=== PATIENT | male | born 1990 | race Caucasian/White ===

== ENCOUNTER 2017-06-08 19:55 | Emergency (ER) | payer OTHER ==
[~2017-06-08] VITALS: Ht 185.4 cm; Wt 100.3 kg
[~2017-06-08 19:55] MED LIST: ABAT250V; AMLO10 PO; CLON.2 PO; DOXA4; ENAL10 PO; LABE100
[2017-06-08] MEDS ORDERED: IBUP800 PO (22:19)
[2017-06-08] MEDS ORDERED: PENVK500 PO (22:19)
[2017-06-08] MEDS ORDERED: DOXA1 (22:34)
[2017-07-19] MEDS ORDERED: Labetalol HCl300 MG PO (19:01)
[2017-07-19] MEDS ORDERED: AMOX250 PO (19:03)
[2017-07-21] MEDS ORDERED: AZIT500 PO (10:54)
[2017-11-07] MEDS ORDERED: DOXA2 PO (18:23)
[2017-11-07] MEDS ORDERED: OLAN5 PO (18:25)
[2017-11-07] MEDS ORDERED: ESCI5 PO (18:26)
[2017-11-08] MEDS ORDERED: LISI20 PO (16:40)
[2018-01-24] MEDS ORDERED: CLON.3 PO (03:25)
[2018-01-24] MEDS ORDERED: TRAZ50 PO (03:28)
[2018-01-29] MEDS ORDERED: ACET500 PO (04:22)
[2018-01-29] MEDS ORDERED: PANT20 PO (16:29)
== END 2017-06-09 00:20 | disposition home or self-care (01) ==
LOC: ER 19:55
DX: K02.9 Dental caries, unspecified (principal); I10 Essential (primary) hypertension; Z79.899 Other long term (current) drug therapy; Z87.891 Personal history of nicotine dependence
CPT/HCPCS: 99282

== ENCOUNTER 2017-07-10 19:26 | Inpatient (IN) | payer OTHER ==
[~2017-07-10] VITALS: Ht 185.4 cm; Wt 93.3 kg
[~2017-07-10 19:26] MED LIST changes: +AMLO10; -AMLO10 PO; +DOXA1; +IBUP800 PO; +PENVK500 PO
[2017-07-10] MEDS ORDERED: DOXA1 PO (19:48)
[2017-07-10 20:12] LABS: BASOPHILS ABSOLUTE AUTO 0.05 K/mm3 (0.00-0.23); BASOPHILS PERCENT AUTO 1 % (0-2); EOSINOPHILS ABSOLUTE AUTO 0.25 K/mm3 (0.00-0.68); EOSINOPHILS PERCENT AUTO 3 % (0-6); Hematocrit 50.9 % (37.0-53.0); Hemoglobin 17.4 g/dL (13.5-17.5); IMMATURE GRAN ABSOLUTE AUTO 0.02 K/mm3 (0.00-0.10); IMMATURE GRAN PERCENT AUTO 0 % (0-1); LYMPHOCYTES ABSOLUTE AUTO 2.56 K/mm3 (0.84-5.20); LYMPHOCYTES PERCENT AUTO 33 % (21-46); MONOCYTES ABSOLUTE AUTO 0.71 K/mm3 (0.16-1.47); MONOCYTES PERCENT AUTO 9 % (4-13); Mean Corpuscular HGB Conc 34.2 g/dL (31.5-36.5); Mean Corpuscular Volume 82 fL (80-100); NEUTROPHILS PERCENT AUTO 54 % (41-73); Platelet Count 247 K/mm3 (150-400); RDW Coefficient Variation 12.8 % (11.7-14.2); RDW Standard Deviation 37.6 fL (35.1-46.3); Red Blood Cell Count 6.21 M/mm3 (4.30-5.90); White Blood Cell Count 7.79 K/mm3 (4.00-11.30)
[2017-07-10 20:35] LABS: U Amphetamine Screen Not Detected; U Barbituate Screen Not Detected; U Benzodiazapine Screen Not Detected; U Buprenorphine Screen Not Detected; U Cannabinoids Screen Not Detected; U Cocaine Screen Not Detected; U Methadone Screen Not Detected; U Methamphetamine Screen Not Detected; U Opiates Screen Not Detected; U Oxycodone Screen Not Detected; U Phencyclidine Screen Not Detected; U Propoxyphene Screen Not Detected
[2017-07-10 20:36] LABS: Alanine Aminotransfer (ALT/SGP 72 U/L (12-78); Albumin, Blood 4.2 g/dL (3.4-5.0); Albumin/Globulin Ratio 1.1 (0.8-1.8); Alk Phos 117 U/L (50-136); Anion Gap 8 mmol/L (6-16); Aspartate Aminotrans (AST/SGOT 39 U/L (12-37); Bilirubin, Total 0.7 mg/dL (0.1-1.0); Blood Urea Nitrogen 16 mg/dL (8-24); Bun/Creatinine Ratio 15.1 (12.0-20.0); CO2, Blood 27 mmol/L (21-32); Calcium, Blood 8.7 mg/dL (8.5-10.1); Chloride, Blood 107 mmol/L (98-108); Creatinine, Blood 1.06 mg/dL (0.60-1.20); Ethanol (Alcohol), Blood, Med <3 mg/dL; Globulin, Blood 3.9 g/dL (2.2-4.0); Glomerular Filtration Rate >60 (60-); Glucose, Blood 90 mg/dL (70-99); Sodium, Blood 142 mmol/L (136-145); Total Protein, Blood 8.1 g/dL (6.4-8.2); Troponin I <0.015 ng/mL (0.000-0.040)
[2017-07-11] MEDS ORDERED: AMIL5 PO (01:47)
[2017-07-11 09:14] LABS: BASOPHILS ABSOLUTE AUTO 0.03 K/mm3 (0.00-0.23); BASOPHILS PERCENT AUTO 0 % (0-2); EOSINOPHILS ABSOLUTE AUTO 0.09 K/mm3 (0.00-0.68); EOSINOPHILS PERCENT AUTO 1 % (0-6); Hematocrit 49.8 % (37.0-53.0); Hemoglobin 16.9 g/dL (13.5-17.5); IMMATURE GRAN ABSOLUTE AUTO 0.02 K/mm3 (0.00-0.10); IMMATURE GRAN PERCENT AUTO 0 % (0-1); LYMPHOCYTES ABSOLUTE AUTO 2.34 K/mm3 (0.84-5.20); LYMPHOCYTES PERCENT AUTO 28 % (21-46); MONOCYTES ABSOLUTE AUTO 0.83 K/mm3 (0.16-1.47); MONOCYTES PERCENT AUTO 10 % (4-13); Mean Corpuscular HGB 27.7 pg (26.0-34.0); Mean Corpuscular HGB Conc 33.9 g/dL (31.5-36.5); Mean Corpuscular Volume 82 fL (80-100); Mean Platelet Volume 9.9 fL (9.1-12.4); NEUTROPHILS ABSOLUTE AUTO 4.93 K/mm3 (1.96-9.15); NEUTROPHILS PERCENT AUTO 60 % (41-73); Platelet Count 227 K/mm3 (150-400); RDW Standard Deviation 37.7 fL (35.1-46.3); Red Blood Cell Count 6.11 M/mm3 (4.30-5.90); White Blood Cell Count 8.24 K/mm3 (4.00-11.30)
[2017-07-11 14:20] LABS: Alanine Aminotransfer (ALT/SGP 64 U/L (12-78); Albumin, Blood 3.7 g/dL (3.4-5.0); Alk Phos 98 U/L (50-136); Anion Gap 12 mmol/L (6-16); Aspartate Aminotrans (AST/SGOT 31 U/L (12-37); Blood Urea Nitrogen 14 mg/dL (8-24); Bun/Creatinine Ratio 14.5 (12.0-20.0); CO2, Blood 22 mmol/L (21-32); Calcium, Blood 8.9 mg/dL (8.5-10.1); Chloride, Blood 110 mmol/L (98-108); Creatinine, Blood 0.97 mg/dL (0.60-1.20); Globulin, Blood 3.7 g/dL (2.2-4.0); Glomerular Filtration Rate >60 (60-); Glucose, Blood 108 mg/dL (70-99); Potassium, Blood 2.9 mmol/L (3.5-5.5); Sodium, Blood 144 mmol/L (136-145); Total Protein, Blood 7.4 g/dL (6.4-8.2)
[2017-07-11 14:42] LABS: Source, Urine Clean Catch
[2017-07-11 15:03] LABS: Bilirubin, Urine Neg (Neg); Blood, Urine Neg (Neg); Glucose Qualitative, Urine Neg (Neg); Ketones, Urine Neg (Neg); Leukocyte Esterase, Urine Neg (Neg); Nitrite, Urine Neg (Neg); Protein, Urine Neg (Neg); Specific Gravity, Urine 1.015 (1.003-1.022); Urobilinogen, Urine 2+ (Normal)
[2017-07-11 15:10] LABS: Appearance, Urine Clear (Clear); Color, Urine Yellow (P-Yellow)
[2017-07-11 16:19] LABS: Anion Gap 10 mmol/L (6-16); Blood Urea Nitrogen 14 mg/dL (8-24); Bun/Creatinine Ratio 15.1 (12.0-20.0); CO2, Blood 25 mmol/L (21-32); Calcium, Blood 9.2 mg/dL (8.5-10.1); Chloride, Blood 106 mmol/L (98-108); Creatinine, Blood 0.93 mg/dL (0.60-1.20); Glomerular Filtration Rate >60 (60-); Glucose, Blood 115 mg/dL (70-99); Potassium, Blood 3.2 mmol/L (3.5-5.5); Sodium, Blood 141 mmol/L (136-145)
[2017-07-12 09:48] LABS: Albumin, Blood 3.7 g/dL (3.4-5.0); Anion Gap 9 mmol/L (6-16); Blood Urea Nitrogen 10 mg/dL (8-24); Bun/Creatinine Ratio 12.4 (12.0-20.0); CO2, Blood 24 mmol/L (21-32); Calcium, Blood 9.1 mg/dL (8.5-10.1); Chloride, Blood 107 mmol/L (98-108); Creatinine, Blood 0.81 mg/dL (0.60-1.20); Glomerular Filtration Rate >60 (60-); Glucose, Blood 118 mg/dL (70-99); Phosphorus, Blood 2.5 mg/dL (2.5-4.9); Potassium, Blood 2.9 mmol/L (3.5-5.5); Sodium, Blood 140 mmol/L (136-145)
[2017-07-13 05:08] LABS: Albumin, Blood 3.3 g/dL (3.4-5.0); Anion Gap 7 mmol/L (6-16); Blood Urea Nitrogen 15 mg/dL (8-24); Bun/Creatinine Ratio 17.7 (12.0-20.0); CO2, Blood 26 mmol/L (21-32); Chloride, Blood 109 mmol/L (98-108); Creatinine, Blood 0.85 mg/dL (0.60-1.20); Glomerular Filtration Rate >60 (60-); Glucose, Blood 97 mg/dL (70-99); Phosphorus, Blood 3.9 mg/dL (2.5-4.9); Potassium, Blood 3.5 mmol/L (3.5-5.5); Sodium, Blood 142 mmol/L (136-145)
[2017-07-13] MEDS ORDERED: AMIL5 PO (12:40)
[2017-07-13] MEDS ORDERED: LABE100 PO (12:42)
[2017-07-13] MEDS ORDERED: Cardura2 MG PO (12:47)
[2017-07-19] MEDS ORDERED: Labetalol HCl300 MG PO (19:01)
[2017-07-19] MEDS ORDERED: AMOX250 PO (19:03)
[2017-07-21] MEDS ORDERED: AZIT500 PO (10:54)
== END 2017-07-13 13:13 | disposition home or self-care (01) | DRG 305 ==
LOC: ER 19:26 → ICUE 19:27 → ICUW 19:27 → ICUE 07-11 01:31 → MEDS 07-11 01:45 → ICUE 07-11 15:02 → MEDS 07-11 18:01 → ENPENDDIS 07-13 12:00 → MEDS 07-13 13:13
PROVIDERS: Emergency Medicine; Family Medicine; Internal Medicine
DX: I16.1 Hypertensive emergency (principal); E87.6 Hypokalemia; N18.2 Chronic kidney disease, stage 2 (mild); I12.9 Hypertensive chronic kidney disease with stage 1 through stage 4 chronic kidney disease, or unspecified chronic kidney disease; Z79.899 Other long term (current) drug therapy
CPT/HCPCS: 36415; 71045; 80048; 80053; 80069; 80400; 81003; 82088; 82533; 84156; 84244; 84484; 85025; 93005; 93010; 93306; 93975; 96365; 96366; 96375; 96376; 99285; G0480; J0360; J0834; J2001; J3480; J7030

== ENCOUNTER 2018-04-10 11:25 | Inpatient (IN) | payer OTHER ==
[~2018-04-10] VITALS: Ht 185.4 cm; Wt 109.3 kg
[~2018-04-10 11:25] MED LIST changes: +ACET500 PO; +AMIL5 PO; -AMLO10; +AMLO10 PO; +AMOX250 PO; +AZIT500 PO; +Cardura2 MG PO; +DOXA1 PO; +DOXA2 PO; +ESCI5 PO; +LABE100 PO; +LISI20 PO; +Labetalol HCl300 MG PO; +OLAN5 PO; +PANT20 PO; +TRAZ50 PO
[2018-04-10 12:06] LABS: BASOPHILS ABSOLUTE AUTO 0.06 K/mm3 (0.00-0.23); BASOPHILS PERCENT AUTO 1 % (0-2); EOSINOPHILS ABSOLUTE AUTO 0.36 K/mm3 (0.00-0.68); EOSINOPHILS PERCENT AUTO 4 % (0-6); Hematocrit 53.9 % (37.0-53.0); Hemoglobin 17.9 g/dL (13.5-17.5); IMMATURE GRAN ABSOLUTE AUTO 0.03 K/mm3 (0.00-0.10); IMMATURE GRAN PERCENT AUTO 0 % (0-1); LYMPHOCYTES ABSOLUTE AUTO 2.67 K/mm3 (0.84-5.20); LYMPHOCYTES PERCENT AUTO 33 % (21-46); MONOCYTES ABSOLUTE AUTO 0.51 K/mm3 (0.16-1.47); MONOCYTES PERCENT AUTO 6 % (4-13); Mean Corpuscular HGB 28.6 pg (26.0-34.0); Mean Corpuscular HGB Conc 33.2 g/dL (31.5-36.5); Mean Corpuscular Volume 86 fL (80-100); Mean Platelet Volume 10.3 fL (9.1-12.4); NEUTROPHILS ABSOLUTE AUTO 4.55 K/mm3 (1.96-9.15); NEUTROPHILS PERCENT AUTO 56 % (41-73); Platelet Count 329 K/mm3 (150-400); RDW Coefficient Variation 13.2 % (11.7-14.2); RDW Standard Deviation 40.5 fL (35.1-46.3); Red Blood Cell Count 6.26 M/mm3 (4.30-5.90); White Blood Cell Count 8.18 K/mm3 (4.00-11.30)
[2018-04-10 12:28] LABS: Alanine Aminotransfer (ALT/SGP 86 U/L (12-78); Albumin, Blood 4.4 g/dL (3.4-5.0); Albumin/Globulin Ratio 1.1 (0.8-1.8); Alk Phos 121 U/L (50-136); Anion Gap 7 mmol/L (6-16); Aspartate Aminotrans (AST/SGOT 40 U/L (12-37); Bilirubin, Total 0.7 mg/dL (0.1-1.0); Blood Urea Nitrogen 15 mg/dL (8-24); CO2, Blood 27 mmol/L (21-32); Calcium, Blood 9.1 mg/dL (8.5-10.1); Chloride, Blood 106 mmol/L (98-108); Creatinine, Blood 0.88 mg/dL (0.60-1.20); Glomerular Filtration Rate >60 (60-); Glucose, Blood 106 mg/dL (70-99); Potassium, Blood 3.5 mmol/L (3.5-5.5); Sodium, Blood 140 mmol/L (136-145); Total Protein, Blood 8.4 g/dL (6.4-8.2); Troponin I <0.015 ng/mL (0.000-0.040)
[2018-04-10] MEDS ORDERED: Labetalol HCl300 MG PO (12:50)
[2018-04-10] MEDS ORDERED: FLUO10 PO (12:51)
[2018-04-10] MEDS ORDERED: QUET300 PO (12:51)
--- NOTE | 2018-04-10 17:08 | NUR ---
Received report and assumed care of patient. He is A&O with pleasant affect. Only complaint is some continued burning chest pain he states, "09/15." Nipride is running at 0.75 mcg/kg/min with rate of 24.3. Will continue to monitor and titrate Nipride to ordered parameters.
--- NOTE | 2018-04-10 18:40 | NUR ---
Patient has not had any significant changes, his b/p is continuing to come down. Currently systolic b/p 160's. Will continue Nipride at 0.75 mcg/kg/min. Encouraged patient to urinate. Gave him information for local and national [employer] eye glassess resource.
[2018-04-10 21:24] LABS: U Amphetamine Screen Not Detected; U Barbituate Screen Not Detected; U Benzodiazapine Screen Not Detected; U Buprenorphine Screen Not Detected; U Cannabinoids Screen DETECTED; U Cocaine Screen Not Detected; U Methadone Screen Not Detected; U Methamphetamine Screen Not Detected; U Opiates Screen Not Detected; U Oxycodone Screen Not Detected; U Phencyclidine Screen Not Detected; U Propoxyphene Screen Not Detected
--- NOTE | 2018-04-10 22:54 | NUR ---
ASSUMING CARE RECEVIED PT REPORT FROM KEVIN DAVIDSON. PT IS ADMITTED DUE TO A HYPERTENSIVE CRISIS. PT IS CURRENTLY ON A NIPRIDE GTT. NIPRIDE GTT AT THE TIME OF SHIFT REPORT IS RUNNING AT 0.75MCG/KG/MIN. PT SBP IS IN THE 160-170 RANGE AT THE TIME OF SHIFT REPORT. PT IS ALERT AND ORIENTED AND IS ABLE TO MAKE NEEDS KNOWN. PT IS REPORTING A HEADACHE AND N/V. PT PROVIDED ZOFRAN AND TYLENOL SHORTLY AFTER CARE ASSUMED. PT REPORTED SOME RELEIF FROM MEDICATION ADMINISTRATION. URINE SAMPLE SENT UP TO LAB. NIPRIDE GTT TITRATED TO EFFECT. AFTER ADMINISTRATION OF 2100 MEDICATIONS PT SBP DECREASED. NIPRIDE GTT REDUCED TO 0.1MCG/KG/MIN AT THIS TIME. ASSUMING CARE OF PT AT THE TIME OF SHIFT REPORT. WILL CONTINUE TO MONITOR PT.
[2018-04-11 04:29] LABS: Anion Gap 8 mmol/L (6-16); Blood Urea Nitrogen 22 mg/dL (8-24); Bun/Creatinine Ratio 10.7 (12.0-20.0); CO2, Blood 26 mmol/L (21-32); Calcium, Blood 9.1 mg/dL (8.5-10.1); Chloride, Blood 105 mmol/L (98-108); Creatinine, Blood 2.06 mg/dL (0.60-1.20); Glomerular Filtration Rate 41 (60-); Glucose, Blood 105 mg/dL (70-99); Phosphorus, Blood 4.5 mg/dL (2.5-4.9); Sodium, Blood 139 mmol/L (136-145)
--- NOTE | 2018-04-11 05:23 | NUR ---
SHIFT SUMMARY NOTE PT HAS REMAIND ALERT AND ORIENTED THROUGH THE NIGHT WHILE AWAKE. PT HAS SLEPT THROUGH MUCH OF THE NIGHT AFTER APPROX 2300. PT HAS HAD NO FURTHER COMPLAINTS OF N/V OR HEADACHE. PT BP HAS DECREASED AND IS IN THE 110-120'S AT THIS TIME. NIPRIDE HAS BEEN ON STANDBY SINCE APPROX 0000. PT HAS OCCASIONALLY DESATURATED INTO THE HIGH 80'S WHILE ASLEEP. 2L O2 VIA NC APPLIED. PT HAS CONTINUALLY REMOVED NC. PT DOES NOT MAINTAIN IN THE 80'S AND WILL QUICKLY RETURN TO THE MID 90'S. PT IS SALINE LOCKED AT THIS TIME. WILL REPORT OFF TO [facility] DAY SHIFT NURSE.
--- NOTE | 2018-04-11 10:30 | NUR ---
RECEIVED REPORT AND ASSUMED CARE OF PATIENT. HE IS VERY LETHARGIC THIS MORNING, BUT DOES REPORT THAT HIS CHEST PAIN HAS RESOLVED AND HE IS NOT EXPERIENCING ANY HEADACHE SYMPTOMS AT THIS TIME. BLOOD PRESSURES HAVE CORRECTED AND ARE RUNNING 110-120'S SYSTOLICALLY. DR. LOMBARDI IN TO SEE PATIENT STATES SHE WOULD LIKE THE CLONIDINE AND AMILORIDE HELD UNTIL THIS AFTERNOON. SHE ORDERED K+ REPLACEMENT AND A IV DRIP OF 1/2 NS WITH 20 MEQ K+ TO RUN FOR 24 HOURS. ORDERED FOLLOW UP LABS FOR THIS AFTERNOON AND WOULD LIKE A CALL WITH RESULTS. PT IS CONTINUING TO REST COMFORTABLY, WILL MONITOR BP AND REPORT CHANGES PER DR. DIOR.
--- NOTE | 2018-04-11 10:30 | NUR ---
GAVE REPORT TO KEVIN SALINAS TO ASSUME CARE OF PATIENT. DR. LOMBARDI TO BE CALLED BEFORE 1400 MEDS ARE GIVEN.
--- NOTE | 2018-04-11 10:46 | NUR ---
DR. MARIA C LOMBARDI CALLED WITH UPDATE ON PLAN OF CARE. SHE STATES SHE HAS MADE SOME MED ADJUSTMENTS AND WOULD LIKE PT TO REMAIN ICU STATUS THROUGH REST OF DAY. SHE WOULD LIKE TO BE CALLED PRIOR TO 1400 BP MED ADMINISTRATION. SHE WOULD LIKE PT'S SYSTOLIC BP TO REMAIN 140-150 RANGE. NO ADDITIONAL ORDERS RECEIVED AT THIS TIME.
--- NOTE | 2018-04-11 10:55 | NUR ---
ASSUMED CARE OF PATIENT; NO ACUTE CHANGES.
--- NOTE | 2018-04-11 14:15 | NUR ---
T/C TO DR. LOMBARDI RE: RECENT BP READINGS; ORDER GIVEN TO HOLD THIS AFTERNOONS MEDS (CATAPRESS AND TRANDATE). WILL DETERMINE WHAT TO DO WITH EVENING MEDS WHEN 1600 LABS CALLED.
[2018-04-11 16:40] LABS: Albumin, Blood 3.9 g/dL (3.4-5.0); Anion Gap 6 mmol/L (6-16); Blood Urea Nitrogen 28 mg/dL (8-24); Bun/Creatinine Ratio 10.3 (12.0-20.0); CO2, Blood 27 mmol/L (21-32); Calcium, Blood 8.8 mg/dL (8.5-10.1); Chloride, Blood 105 mmol/L (98-108); Creatinine, Blood 2.72 mg/dL (0.60-1.20); Glomerular Filtration Rate 29 (60-); Glucose, Blood 85 mg/dL (70-99); Phosphorus, Blood 4.5 mg/dL (2.5-4.9); Potassium, Blood 3.4 mmol/L (3.5-5.5); Sodium, Blood 138 mmol/L (136-145)
--- NOTE | 2018-04-11 16:50 | NUR ---
T/C TO DR. LOMBARDI RE: 1600 LAB RESULTS; SEE MULTIPLE BP MED. CHANGES.
--- NOTE | 2018-04-11 18:43 | NUR ---
SUMMARY: PATIENT SLEPT MOST OF DAY; AWAKE THE PAST 1-2 HOURS; SBP 130'S TO 140'S WHEN AWAKE; SEE VS CHART. MULTIPLE BP MED. ADJUSTMENTS FOR TONIGHT AND DR. LOMBARDI TO MAKE CHANGES IN AM RE: AM BP MEDS. IDEALLY WANTS SBP 140-160. PATIENT ATE WELL WITH DINNER; REFUSES LOVENOX INJECTION AND WILL NOT WEAR SCD'S; STATES HE MOVES AROUND ENOUGH. OVERALL STATUS IMPROVED.
--- NOTE | 2018-04-11 19:15 | NUR ---
[place] of Care: Patient sleeping, easily roused via verbal stimuli, oriented x4. Denies pain, discomfort, SOB, or dyspnea. VSS, systolic BP 120's-130's. 1/2NS with 20meq KCl infusing at 125ml without difficulty. Will monitor BP and give scheduled 2100hr medications per Dr. Beasley's nurse notify orders/parameters. Voiding using urinal without difficulty. Peripheral IV's x2 patent and intact. Call light in reach, makes needs known, adjust own position in bed. Will continue to monitor for pain, comfort, safety.
[2018-04-12 03:52] LABS: Albumin, Blood 3.7 g/dL (3.4-5.0); Anion Gap 8 mmol/L (6-16); Blood Urea Nitrogen 26 mg/dL (8-24); Bun/Creatinine Ratio 16.2 (12.0-20.0); CO2, Blood 24 mmol/L (21-32); Calcium, Blood 8.6 mg/dL (8.5-10.1); Chloride, Blood 108 mmol/L (98-108); Glomerular Filtration Rate 54 (60-); Glucose, Blood 91 mg/dL (70-99); Phosphorus, Blood 3.2 mg/dL (2.5-4.9); Potassium, Blood 3.6 mmol/L (3.5-5.5); Sodium, Blood 140 mmol/L (136-145)
--- NOTE | 2018-04-12 05:44 | NUR ---
Shift Summary: Patient slept well throughout shift, easily roused via verbal stimuli, oriented x4. Denies pain, discomfort, SOB, or dyspnea throughout shift. VSS, systolic BP 120's-140's. Peripheral IV's remain patent and intact, infusing fluids without difficulty. Voiding using urinal in bed, dark yellow clear urine. Status change to PCU this shift per Dr. Chung. Pleasant and cooperative with staff, makes needs known. Will continue to monitor until report to day shift RN.
--- NOTE | 2018-04-12 07:30 | NUR ---
ASSUMED CARE OF PATIENT; SEE ASSESSMENT CHARTING FOR DETAILED ASSESSMENT. LUNGS CLEAR; NO ACUTE DISTRESS. MORE ALERT THIS AM; NO C/O PAIN. MAEW AND REPOSITIONS SELF IN BED. SBP IMPROVED; STAYING 130'S TO 170; AWAITING DR. LOMBARDI TO ARRIVE TO DETERMINE BP MEDS. TO BE GIVEN THIS AM. APPETITE BETTER BUT REMAINS QUIET AND NONOBTRUSIVE.
--- NOTE | 2018-04-12 09:15 | NUR ---
T/C TO DR. LOMBARDI TO CHECK ON AM MEDS; MESSAGE LEFT FOR HER WITH UPDATE.
--- NOTE | 2018-04-12 09:20 | NUR ---
DR. LOMBARDI RETURNED CALL; SEE MED ORDERS. SHE WILL ROUND THIS AFTERNOON AND DETERMINE ONGOING TX. FOR BP MANAGEMENT.
--- NOTE | 2018-04-12 12:30 | NUR ---
TOLERATING MEALS WITHOUT GI UPSET. VOIDING IN URINAL MODERATE TO LARGE AMOUNTS; URINE REMAINS LINDA IN COLOR.
--- NOTE | 2018-04-12 18:00 | NUR ---
SUMMARY; NO ACUTE C/O. SBP ADEQUATE; BP MEDS. ADJUSTED BY DR. LOMBARDI; VSS. PATIENT SLEEPIER THIS AFTERNOON AND APPETITE REDUCED THIS EVENING. SLEEPING WHEN NOT DISTURBED. TALKED ON PHONE TO S.O. TODAY. VOIDING IN URINAL; URINE REMAINS LINDA. REFUSES SCD'S AND LOVENOX. NOT WANTING TO GET OOB BUT ABLE TO REPOSITION SELF IN BED WITHOUT DIFFICULTY.
--- NOTE | 2018-04-12 19:30 | NUR ---
[place] of Care: Patient sleeping, easily roused via verbal stimuli, oriented x4. Denies pain, discomfort, SOB, dyspnea, or SOB. VSS, systolic BP 150's-160's, O2-95% on RA. Voiding using urinal in bed without difficulty. Peripheral IV's x2 patent and intact. Flat affect, but calm and cooperative with staff. Call light in reach, makes needs known. Will continue to monitor for pain, comfort, safety.
[2018-04-13 04:38] LABS: Albumin, Blood 3.8 g/dL (3.4-5.0); Anion Gap 8 mmol/L (6-16); Blood Urea Nitrogen 19 mg/dL (8-24); Bun/Creatinine Ratio 18.4 (12.0-20.0); CO2, Blood 23 mmol/L (21-32); Chloride, Blood 109 mmol/L (98-108); Creatinine, Blood 1.03 mg/dL (0.60-1.20); Glomerular Filtration Rate >60 (60-); Glucose, Blood 95 mg/dL (70-99); Potassium, Blood 3.9 mmol/L (3.5-5.5); Sodium, Blood 140 mmol/L (136-145)
--- NOTE | 2018-04-13 06:10 | NUR ---
Shift Summary: Slept well throughout shift, only rouses when staff in room for care. Continues to deny pain, discomfort, SOB, or dyspnea. VSS, systolic BP 140's-160's. Voids using urinal in bed without difficulty. Will continue to monitor until report to day shift RN.
--- NOTE | 2018-04-13 12:03 | NUR ---
Discharge: Assumed care of pt at approx 0700 this AM. VSS - hypertensive this AM - medicated per orders. In no apparent sign of distress. Pt is independent in the room and asks for assistance appropriately. Denies any pain. Denies any complaints at all. See shift assessment for detailed assessment. Pt discharged today with friend at approx 1200. VSS. In no apparent sign of distress. Pt provided with discharge education and discharged with belongings in hand. Denied any furhter questions, complaints or requests at time of discharge.
== END 2018-04-13 12:00 | disposition home or self-care (01) | DRG 305 ==
LOC: ER 11:25 → ICUE 11:26 → ICUW 11:26 → ICUE 16:17
PROVIDERS: Emergency Medicine; Internal Medicine; ADMIT Internal Medicine
DX: I16.0 Hypertensive urgency (principal); N17.9 Acute kidney failure, unspecified; I71.2 Thoracic aortic aneurysm, without rupture; F25.9 Schizoaffective disorder, unspecified; I15.1 Hypertension secondary to other renal disorders; E87.6 Hypokalemia; Z87.891 Personal history of nicotine dependence; Z79.899 Other long term (current) drug therapy; Z88.5 Allergy status to narcotic agent; Z91.018 Allergy to other foods; Z28.20 Immunization not carried out because of patient decision for unspecified reason
CPT/HCPCS: 36415; 71275; 74175; 80048; 80053; 80069; 84484; 85025; 93005; 93010; 96374; 96375; 99285-25; C9113; G0378; J0360; J2405; J3480; J7060; Q9967

== ENCOUNTER 2018-10-21 15:23 | Emergency (ER) | payer OTHER ==
[~2018-10-21] VITALS: Ht 185.4 cm; Wt 108.9 kg
[~2018-10-21 15:23] MED LIST changes: +FLUO10 PO; +LABE200 PO; +QUET300 PO
[2018-10-21 15:53] LABS: BASOPHILS ABSOLUTE AUTO 0.02 K/mm3 (0.00-0.23); BASOPHILS PERCENT AUTO 0 % (0-2); EOSINOPHILS ABSOLUTE AUTO 0.06 K/mm3 (0.00-0.68); EOSINOPHILS PERCENT AUTO 1 % (0-6); Hemoglobin 19.1 g/dL (13.5-17.5); IMMATURE GRAN ABSOLUTE AUTO 0.03 K/mm3 (0.00-0.10); IMMATURE GRAN PERCENT AUTO 0 % (0-1); LYMPHOCYTES ABSOLUTE AUTO 1.17 K/mm3 (0.84-5.20); LYMPHOCYTES PERCENT AUTO 12 % (21-46); MONOCYTES ABSOLUTE AUTO 0.46 K/mm3 (0.16-1.47); MONOCYTES PERCENT AUTO 5 % (4-13); Mean Corpuscular HGB 27.7 pg (26.0-34.0); Mean Corpuscular HGB Conc 33.2 g/dL (31.5-36.5); Mean Corpuscular Volume 84 fL (80-100); Mean Platelet Volume 10.2 fL (9.1-12.4); NEUTROPHILS ABSOLUTE AUTO 8.34 K/mm3 (1.96-9.15); NEUTROPHILS PERCENT AUTO 83 % (41-73); Platelet Count 367 K/mm3 (150-400); RDW Coefficient Variation 13.3 % (11.7-14.2); RDW Standard Deviation 39.7 fL (35.1-46.3); Red Blood Cell Count 6.89 M/mm3 (4.30-5.90); White Blood Cell Count 10.08 K/mm3 (4.00-11.30)
[2018-10-21 16:00] LABS: Hematocrit 57.5 % (37.0-53.0)
[2018-10-21 16:19] LABS: Alanine Aminotransfer (ALT/SGP 73 U/L (12-78); Albumin, Blood 4.6 g/dL (3.4-5.0); Albumin/Globulin Ratio 1.1 (0.8-1.8); Alk Phos 127 U/L (50-136); Anion Gap 8 mmol/L (6-16); Aspartate Aminotrans (AST/SGOT 27 U/L (12-37); Blood Urea Nitrogen 17 mg/dL (8-24); Bun/Creatinine Ratio 13.4 (12.0-20.0); CO2, Blood 24 mmol/L (21-32); Calcium, Blood 9.6 mg/dL (8.5-10.1); Chloride, Blood 109 mmol/L (98-108); Creatinine, Blood 1.27 mg/dL (0.60-1.20); Globulin, Blood 4.3 g/dL (2.2-4.0); Glomerular Filtration Rate >60 (60-); Glucose, Blood 108 mg/dL (70-99); Potassium, Blood 3.3 mmol/L (3.5-5.5); Sodium, Blood 141 mmol/L (136-145); Total Protein, Blood 8.9 g/dL (6.4-8.2); Troponin I <0.015 ng/mL (0.000-0.040)
[2018-10-21] MEDS ORDERED: LATUDA20 MG PO (16:52)
[2018-10-21] MEDS ORDERED: NITR.8TP TOP (16:52)
== END 2018-10-21 19:25 | disposition home or self-care (01) ==
LOC: ER 15:23
PROVIDERS: Physician Assistant
DX: E86.0 Dehydration (principal); I10 Essential (primary) hypertension; R55 Syncope and collapse; Z87.891 Personal history of nicotine dependence; Z88.5 Allergy status to narcotic agent; Z91.018 Allergy to other foods; Z79.899 Other long term (current) drug therapy
CPT/HCPCS: 36415; 71046; 80053; 84484; 85025; 93005; 93010; 96360; 99284-25; J7120

== ENCOUNTER 2018-11-03 10:16 | Observation (INO) | payer OTHER ==
[~2018-11-03] VITALS: Ht 185.4 cm; Wt 108.9 kg
[~2018-11-03 10:16] MED LIST changes: +LATUDA20 MG PO; +NITR.8TP TOP
[2018-11-03 10:59] LABS: BASOPHILS ABSOLUTE AUTO 0.05 K/mm3 (0.00-0.23); BASOPHILS PERCENT AUTO 1 % (0-2); EOSINOPHILS ABSOLUTE AUTO 0.12 K/mm3 (0.00-0.68); EOSINOPHILS PERCENT AUTO 1 % (0-6); Hematocrit 54.9 % (37.0-53.0); Hemoglobin 18.4 g/dL (13.5-17.5); IMMATURE GRAN ABSOLUTE AUTO 0.02 K/mm3 (0.00-0.10); IMMATURE GRAN PERCENT AUTO 0 % (0-1); LYMPHOCYTES ABSOLUTE AUTO 2.56 K/mm3 (0.84-5.20); LYMPHOCYTES PERCENT AUTO 29 % (21-46); MONOCYTES ABSOLUTE AUTO 0.53 K/mm3 (0.16-1.47); MONOCYTES PERCENT AUTO 6 % (4-13); Mean Corpuscular HGB 27.7 pg (26.0-34.0); Mean Corpuscular HGB Conc 33.5 g/dL (31.5-36.5); Mean Corpuscular Volume 83 fL (80-100); Mean Platelet Volume 10.1 fL (9.1-12.4); NEUTROPHILS ABSOLUTE AUTO 5.56 K/mm3 (1.96-9.15); NEUTROPHILS PERCENT AUTO 63 % (41-73); Platelet Count 363 K/mm3 (150-400); RDW Coefficient Variation 12.5 % (11.7-14.2); RDW Standard Deviation 37.6 fL (35.1-46.3); Red Blood Cell Count 6.65 M/mm3 (4.30-5.90); White Blood Cell Count 8.84 K/mm3 (4.00-11.30)
[2018-11-03 11:17] LABS: Ethanol (Alcohol), Blood, Med <3 mg/dL; Salicylate <1.7 mg/dL (2.8-20.0)
[2018-11-03 11:18] LABS: Alanine Aminotransfer (ALT/SGP 71 U/L (12-78); Albumin, Blood 4.6 g/dL (3.4-5.0); Albumin/Globulin Ratio 1.2 (0.8-1.8); Alk Phos 133 U/L (50-136); Anion Gap 8 mmol/L (6-16); Aspartate Aminotrans (AST/SGOT 30 U/L (12-37); Bilirubin, Total 0.5 mg/dL (0.1-1.0); Blood Urea Nitrogen 15 mg/dL (8-24); Bun/Creatinine Ratio 14.6 (12.0-20.0); CO2, Blood 23 mmol/L (21-32); Calcium, Blood 9.4 mg/dL (8.5-10.1); Chloride, Blood 107 mmol/L (98-108); Creatinine, Blood 1.03 mg/dL (0.60-1.20); Globulin, Blood 3.9 g/dL (2.2-4.0); Glomerular Filtration Rate >60 (60-); Glucose, Blood 108 mg/dL (70-99); Sodium, Blood 138 mmol/L (136-145); Total Protein, Blood 8.5 g/dL (6.4-8.2)
[2018-11-03 11:19] LABS: Acetaminophen, Random <2.0 ug/mL (10.0-30.0)
== END 2018-11-03 14:01 | disposition home or self-care (01) ==
LOC: ER 10:16 → EOR 10:17
PROVIDERS: Emergency Medicine; ADMIT Emergency Medicine
DX: F32.9 Major depressive disorder, single episode, unspecified (principal); I16.0 Hypertensive urgency; I10 Essential (primary) hypertension; Z79.899 Other long term (current) drug therapy; Z88.5 Allergy status to narcotic agent
CPT/HCPCS: 36415; 80053; 85025; 93005; 93010; 96374; 96376; 99285-25; G0378; G0480; J0360; Q3014

== ENCOUNTER 2019-01-27 10:20 | Inpatient (IN) | payer OTHER ==
[~2019-01-27] VITALS: Ht 185.4 cm; Wt 99.3 kg
[2019-01-27 11:04] LABS: BASOPHILS ABSOLUTE AUTO 0.03 K/mm3 (0.00-0.23); BASOPHILS PERCENT AUTO 0 % (0-2); EOSINOPHILS ABSOLUTE AUTO 0.12 K/mm3 (0.00-0.68); EOSINOPHILS PERCENT AUTO 1 % (0-6); Hemoglobin 17.4 g/dL (13.5-17.5); IMMATURE GRAN ABSOLUTE AUTO 0.03 K/mm3 (0.00-0.10); IMMATURE GRAN PERCENT AUTO 0 % (0-1); LYMPHOCYTES ABSOLUTE AUTO 2.34 K/mm3 (0.84-5.20); LYMPHOCYTES PERCENT AUTO 23 % (21-46); MONOCYTES PERCENT AUTO 5 % (4-13); Mean Corpuscular HGB 27.9 pg (26.0-34.0); Mean Corpuscular HGB Conc 33.5 g/dL (31.5-36.5); Mean Corpuscular Volume 83 fL (80-100); Mean Platelet Volume 10.1 fL (9.1-12.4); NEUTROPHILS PERCENT AUTO 70 % (41-73); Platelet Count 353 K/mm3 (150-400); Red Blood Cell Count 6.24 M/mm3 (4.30-5.90); White Blood Cell Count 10.02 K/mm3 (4.00-11.30)
[2019-01-27 11:17] LABS: Alanine Aminotransfer (ALT/SGP 64 U/L (12-78); Alk Phos 144 U/L (50-136); Anion Gap 7 mmol/L (6-16); Aspartate Aminotrans (AST/SGOT 41 U/L (12-37); Bilirubin, Total 0.8 mg/dL (0.1-1.0); Blood Urea Nitrogen 15 mg/dL (8-24); Bun/Creatinine Ratio 15.5 (12.0-20.0); CO2, Blood 27 mmol/L (21-32); Calcium, Blood 9.1 mg/dL (8.5-10.1); Chloride, Blood 107 mmol/L (98-108); Creatinine, Blood 0.97 mg/dL (0.60-1.20); Glomerular Filtration Rate >60 (60-); Glucose, Blood 95 mg/dL (70-99); Potassium, Blood 3.3 mmol/L (3.5-5.5); Sodium, Blood 141 mmol/L (136-145); Troponin I <0.015 ng/mL (0.000-0.040)
--- NOTE | 2019-01-27 14:15 | NUR ---
PATIENT ARRIVED TO ROOM ICU 9 FROM ER AFTER RECEIVING REPORT FROM KEVIN THOMAS, PATIENT MOVED SELF FROM STRETCHER TO BED, BED SCALE MALFUNCTIONING, STANDING SCALE USED TO OBTAIN WEIGHT, PATIENT NEEDS SBA ONLY, NO IMPAIRMENTS NOTED AT THIS TIME, PATIENT DENIES PAIN, REPORTS NO CHEST PAIN/PRESSURE, AFEBRILE, ABLE TO ANSWER ALL QUESTIONS AND TO MAKE NEEDS KNOWN, LUNG SOUNDS CLEAR, ON RA SATING IN UPPER 90'S, PATIENT PLACED ON MONITOR, NSR NOTED, CALL LIGHT GIVEN AND EXPLAINED, PATIENT WAS ORIENTED TO ROOM AND NEW ENVIRONMENT, PATIENT VERBALIZED UNDERSTANDING, CALL LIGHT IN REACH, WILL CONTINUE TO MONITOR.
--- NOTE | 2019-01-27 14:45 | NUR ---
DR. LOMBARDI IN TO SEE PATIENT, NEW ORDERS RECEIVED, PATIENT STARTED ON CARDENE DRIP AT 5 MG/HR WITH RATE OF 50 ML/HR, WITH INSTRUCTIONS FROM DR. LOMBARDI TO STOP DRIP WHEN SBP'S ARE IN 170'S TWICE, PATIENT IS EATING LUNCH WITH GOOD APPETITE AT THIS TIME, CALL LIGHT IN REACH, WILL CONTINUE TO MONITOR.
--- NOTE | 2019-01-27 16:20 | NUR ---
PATIENT RESTING COMFORTABLY AT THIS TIME, WATCHING TV, CALL LIGHT IN REACH, WILL CONTINUE TO MONITOR.
--- NOTE | 2019-01-27 17:42 | NUR ---
SHIFT SUMMARY NOTE: NO ACUTE EVENTS, PATIENT IS AWAKE, ALERT AND ORIENTED, CONTINUES ON CARDENE DRIP AT 7.5 MG/HR AT THIS TIME, BLOOD PRESSURES VARY BETWEEN 170'S TO 190'S, DEPENDING ON PATIENT ACTIVITY, PATIENT IS INDEPENDENT IN ROOM AND STANDS UP TO URINATE, MAKES NEEDS KNOWN, FOR DETAILS SEE ADMISSION AND SHIFT ASSESSMENT DOCUMENTATION, AND NURSES NOTES, CALL LIGHT IN REACH, WILL CONTINUE TO MONITOR AND GIVE REPORT TO ONCOMING GULLET SLITTER.
--- NOTE | 2019-01-27 19:27 | NUR ---
ASSUMED CARE BEDSIDE REPORT RECIEVED. PT IS SITTING UP IN BED, AWAKE, ALERT, AND ORIENTED. PT IS PLEASANT. PT DENIES PAIN OR DISCOMFORT. VITAL SIGNS STABLE, PT ON ROOM AIR. SBP 170'S AT THIS TIME. NICARDIPINE GTT INFUSING AT 7.5 MG/HR. PT USES URINAL AT BEDSIDE TO VOID. WILL CONTINUE TO MONITOR.
[2019-01-28 04:19] LABS: Albumin, Blood 3.8 g/dL (3.4-5.0); Anion Gap 7 mmol/L (6-16); Blood Urea Nitrogen 13 mg/dL (8-24); Bun/Creatinine Ratio 13.1 (12.0-20.0); CO2, Blood 28 mmol/L (21-32); Chloride, Blood 104 mmol/L (98-108); Creatinine, Blood 0.99 mg/dL (0.60-1.20); Glomerular Filtration Rate >60 (60-); Glucose, Blood 89 mg/dL (70-99); Phosphorus, Blood 3.7 mg/dL (2.5-4.9); Potassium, Blood 3.1 mmol/L (3.5-5.5); Sodium, Blood 139 mmol/L (136-145)
--- NOTE | 2019-01-28 06:01 | NUR ---
SHIFT SUMMARY NO ACUTE CHANGES THIS SHIFT. PT HAS REMAINED ALERT, ORIENTED, AND PLEASANT. PT SLEEPING THROUGHOUT THE MORNING WELL. NICARDIPINE GTT TURNED OFF AROUND 0000 WITH SBP REMAINING STABLE BELOW 170. VSS. PT USING URINAL TO VOID INDEPENDENTLY. PT REPOSITIONING SELF IN BED INDEPENDENTLY. WILL CONTINUE TO MONITOR AND REPORT OFF TO ONCOMING RN.
--- NOTE | 2019-01-28 07:10 | NUR ---
ASSUMED CARE: RECEIVED REPORT FROM NOC RN. PT APPEARS TO BE SLEEPING UPON ENTERING THE ROOM EVEN CHEST RISE AND FALL NOTED. NO ACUTE DISTRESS NOTED. VSS AT THIS TIME. NO IVF NOTED, SL LOCK. WILL CONTINUE TO MONITOR AND ASSESS FURTHER.
--- NOTE | 2019-01-28 08:20 | NUR ---
DECREASED LOC: MED STUDENT IN TO ASSESS PT THIS MORNING, UPDATED ON NICARDIPING BEING TURNED OFF AND NO LONGER NEEDING ICU STATUS. PT GIVEN BREAKFAST REPORT OF PT BEING AWAKE AND TALKING NO PROBLEM. THIS RN WENT IN TO ASSESS PT AND GIVE MORNING MEDICATIONS. VSS UPON ENTERING THE ROOM BP IS NOTED TO BE 133/91 AND HR 68 @ 0752. WHILE SCANNING MORNING MEDICATIONS PT REFUSES TO HAVE LOVENOX AND DR HUTCHINS WALKS IN. DR HUTCHINS STARTS TO TALK TO PT BUT PT IS NOTED TO BE NODDING OFF. PT STOPS RESPONDING TO DR HUTCHINS OR THIS RN AND WHEN PHYSICALY SHOOK AWAKE PT IS ONLY ABLE TO OPEN EYES AND APPEARS TO FALL RIGHT BACK TO SLEEP. BP RETAKEN AND NOTED TO BE 98/61 AND HR IN THE LOW 40'S. PT STATES HE DOESN'T FEEL WELL AND IS HOT HE IS NOTED TO BE VERY PALE IN COLOR. A SHORT TIME LATER STATES HE IS COLD. CALLED SENIOR CONTROL SYSTEMS ENGINEER THOM BARRAZA TO BE ON THE WEST SIDE OF THE UNIT FOR BACK UP INCASE PT CODES. RECEIVED ORDERS FOR A 500ML BOLUS OF NS AND AN EKG. PT STILL NOT RESPONDING WELL. DR HUTCHINS LEAVES AND STATES WILL RETURN LATER. MD STUDENT COMES IN TO REASSESS PT AND STATES PT WAS AWAKE ALERT AND TALKING TO HIM EARLIER PT IS WOKEN UP ENOUGH TO STATE HE IS IN "ICU ROOM 9" WHEN ASKED. BP IS NOTED TO BE COMING UP. WILL CONTINUE TO ASSESS. BLOOD SUGAR SPOT CHECK DONE NOTED TO BE 101. ASKED PT IF HES EVER FELT LIKE THIS BEFORE PT STATES ONLY WHEN HIS BLOOD PRESSURE IS LOW, HE STATES BP IS NORMALLY IN THE 150'S. WILL CONTINUE TO ASSESS FURTHER.
--- NOTE | 2019-01-28 08:51 | NUR ---
DR LOMBARDI: UPDATED DR LOMBARDI ON PT CURRENT STATUS AND CONDITION. DR LOMBARDI STATES PT WILL FEEL LIKE THIS WHEN BP DROPS LIKE THIS. ORDERS TO HOLD MORNING MEDICATIONS AND TO GIVE 1/2NS /C 40K+ AT 150ML/HR FOR 1L AFTER BOLUS. BOLUS COMPLETE PLACED AT A RATE OF 75ML/HR UNTIL 1/2NS /C 40K+ ARIVES FROM PHARMACY. PT IS NOTED TO BE MORE AWAKE AND ALERT. STATES HE IS HUNGRY AND REQUESTS SOME YOGURT. LIGHTS ARE ON AND ISABEL IS OPEN TO HELP STIMULATE PT AWAKE. BP IS NOTED TO BE 149/93 AT THIS TIME.
--- NOTE | 2019-01-28 13:24 | NUR ---
TRANSFER TO 354: REPORT GIVEN TO MEDICAL FLOOR RN. PT TRANSFERED BY WHEELCHAIR. NO ACUTE DISTRESS NOTED.
--- NOTE | 2019-01-28 15:59 | NUR ---
SHIFT SUMMARY ICU TRANSFER THIS AFTERNOON. PATIENT DENIES PAIN, NAUSEA, AND SHORTNESS OF BREATH. PATIENT UP INDEPENDENT IN ROOM. PATIENT NAPPING THIS AFTERNOON. CALL LIGHT IN REACH.
[2019-01-29 05:31] LABS: Anion Gap 5 mmol/L (6-16); Blood Urea Nitrogen 16 mg/dL (8-24); Bun/Creatinine Ratio 16.5 (12.0-20.0); CO2, Blood 26 mmol/L (21-32); Chloride, Blood 108 mmol/L (98-108); Creatinine, Blood 0.97 mg/dL (0.60-1.20); Glomerular Filtration Rate >60 (60-); Glucose, Blood 96 mg/dL (70-99); Potassium, Blood 3.4 mmol/L (3.5-5.5); Sodium, Blood 139 mmol/L (136-145)
--- NOTE | 2019-01-29 05:39 | NUR ---
Shift Summary Patient slept well overnight. No complaints of pain. VS remained stable, SBP<180. Potassium improved to 3.4.
[2019-01-29] MEDS ORDERED: DOXA4 PO (15:20)
[2019-01-29] MEDS ORDERED: Nitro-Dur1 EACH TOP (15:21)
[2019-01-29] MEDS ORDERED: AMLO10 PO (15:22)
--- NOTE | 2019-01-29 15:42 | NUR ---
DISCHARGE DISCHARGE MEDICATIONS AND INSTRUCTIONS EXPLAINED TO PATIENT. PATIENT STATED UNDERSTANDING. FOLLOW UP WITH DR. LOMBARDI SCHEDULED. IV REMOVED WITHOUT DIFFICULTY. BELONGINGS WITH PATIENT. PATIENT AMBULATED TO PRIVATE VEHICLE.
== END 2019-01-29 15:45 | disposition home or self-care (01) | DRG 305 ==
LOC: ER 10:20 → MEDS 13:35 → ICUW 13:35 → MEDS 01-28 13:00
PROVIDERS: Physician Assistant; ADMIT Internal Medicine
DX: I16.0 Hypertensive urgency (principal); E87.6 Hypokalemia; I71.2 Thoracic aortic aneurysm, without rupture; F25.9 Schizoaffective disorder, unspecified; I15.1 Hypertension secondary to other renal disorders; I10 Essential (primary) hypertension; F31.9 Bipolar disorder, unspecified; Z87.891 Personal history of nicotine dependence; Z66 Do not resuscitate
CPT/HCPCS: 36415; 71046; 71275; 80048; 80053; 80069; 82947; 83735; 84484; 85025; 93005; 93010; 96374-59; 96376-59; 99285-25; J3480; J7030; J7050; Q9967

== ENCOUNTER 2019-03-30 21:43 | Emergency (ER) | payer OTHER ==
[~2019-03-30] VITALS: Ht 185.4 cm; Wt 104.3 kg
[~2019-03-30 21:43] MED LIST changes: +DOXA4 PO; +Nitro-Dur1 EACH TOP
[2019-03-30 22:23] LABS: BASOPHILS ABSOLUTE AUTO 0.02 K/mm3 (0.00-0.23); BASOPHILS PERCENT AUTO 0 % (0-2); EOSINOPHILS ABSOLUTE AUTO 0.15 K/mm3 (0.00-0.68); EOSINOPHILS PERCENT AUTO 2 % (0-6); Hematocrit 48.9 % (37.0-53.0); Hemoglobin 16.2 g/dL (13.5-17.5); IMMATURE GRAN ABSOLUTE AUTO 0.05 K/mm3 (0.00-0.10); IMMATURE GRAN PERCENT AUTO 1 % (0-1); LYMPHOCYTES ABSOLUTE AUTO 3.57 K/mm3 (0.84-5.20); LYMPHOCYTES PERCENT AUTO 37 % (21-46); MONOCYTES ABSOLUTE AUTO 0.52 K/mm3 (0.16-1.47); MONOCYTES PERCENT AUTO 5 % (4-13); Mean Corpuscular HGB 28.1 pg (26.0-34.0); Mean Corpuscular HGB Conc 33.1 g/dL (31.5-36.5); Mean Corpuscular Volume 85 fL (80-100); Mean Platelet Volume 9.7 fL (9.1-12.4); NEUTROPHILS ABSOLUTE AUTO 5.38 K/mm3 (1.96-9.15); NEUTROPHILS PERCENT AUTO 56 % (41-73); Platelet Count 315 K/mm3 (150-400); RDW Coefficient Variation 13.2 % (11.7-14.2); RDW Standard Deviation 40.5 fL (35.1-46.3); Red Blood Cell Count 5.76 M/mm3 (4.30-5.90); White Blood Cell Count 9.69 K/mm3 (4.00-11.30)
[2019-03-30 22:44] LABS: Alanine Aminotransfer (ALT/SGP 75 U/L (12-78); Alk Phos 136 U/L (50-136); Anion Gap 9 mmol/L (6-16); Aspartate Aminotrans (AST/SGOT 39 U/L (12-37); Bilirubin, Total 0.5 mg/dL (0.1-1.0); Blood Urea Nitrogen 14 mg/dL (8-24); Bun/Creatinine Ratio 14.6 (12.0-20.0); CO2, Blood 25 mmol/L (21-32); Calcium, Blood 9.1 mg/dL (8.5-10.1); Chloride, Blood 107 mmol/L (98-108); Creatinine, Blood 0.96 mg/dL (0.60-1.20); Globulin, Blood 4.1 g/dL (2.2-4.0); Glomerular Filtration Rate >60 (60-); Glucose, Blood 114 mg/dL (70-99); Potassium, Blood 3.5 mmol/L (3.5-5.5); Sodium, Blood 141 mmol/L (136-145); Total Protein, Blood 8.1 g/dL (6.4-8.2); Troponin I <0.015 ng/mL (0.000-0.040)
== END 2019-03-31 03:00 | disposition home or self-care (01) ==
LOC: ER 21:43
PROVIDERS: Physician Assistant
DX: I10 Essential (primary) hypertension (principal); F31.9 Bipolar disorder, unspecified; Z91.02 Food additives allergy status; Z88.5 Allergy status to narcotic agent; Z79.899 Other long term (current) drug therapy; Z87.891 Personal history of nicotine dependence
CPT/HCPCS: 36415; 71046; 80053; 84484; 85025; 93005; 93010; 96374; 96375; 99284-25; J0360